=== PATIENT | female | born 2000 | race Caucasian/White ===

== ENCOUNTER 2021-11-07 20:03 | Emergency (ER) | payer OTHER ==
[~2021-11-07] VITALS: Ht 160 cm; Wt 79.4 kg
--- NOTE | 2021-11-07 20:39 | NUR ---
PATIENT AMBULATED TO BED 9
[2021-11-07 20:41] VITALS: BP 148/98
--- NOTE | 2021-11-07 20:45 | NUR ---
PT C/O BILATERAL ANKLE PRESSURE S/P FALL. PT TRIPPED OVER UNEVEN CONCRETE AND LANDED ON HER BUTTOCKS, PT STATES PAIN WITH FLEXION AND MOVEMENT OF ANKLE SIDE TO SIDE. DENIES ANY OTHER DISCOMFORT AT PRESENT TIME.
[2021-11-07] MEDS ORDERED: IBUP-2213 PO (20:59)
[2021-11-07 21:04] VITALS: BP 122/65
--- NOTE | 2021-11-07 21:05 | NUR ---
PER [facility] INSTRUCTIONS PTS ANKLED WERE WRAPPED WITH LASHANDA WRAP, PT TOLERATED THE PROCEDURE, BUT ASKED FOR AN ICE PACK THE RIGHT ANKLE HURT MORE THAN THE LEFT, +CMS BEFORE AND AFTER APPLICATION
--- NOTE | 2021-11-07 21:08 | NUR ---
Patient discharged with v/s stable. Written and verbal after care instructions given and explained. Patient verbalized understanding. Ambulatory with steady gait. All questions addressed prior to discharge. Advised to follow up with PMD.
== END 2021-11-07 21:06 | disposition home or self-care (01) ==
LOC: MED 20:03
DX: S93.401A Sprain of unspecified ligament of right ankle, initial encounter (principal); S93.402A Sprain of unspecified ligament of left ankle, initial encounter; W18.30XA Fall on same level, unspecified, initial encounter; Y93.89 Activity, other specified; Y92.89 Other specified places as the place of occurrence of the external cause; Y99.8 Other external cause status
CPT/HCPCS: 99282

== ENCOUNTER 2022-08-19 00:05 | Emergency (ER) | payer OTHER ==
[~2022-08-19] VITALS: Ht 160 cm; Wt 83.9 kg
[~2022-08-19 00:05] MED LIST: IBUP-2213 PO
[2022-08-19 00:28] VITALS: BP 132/95; PULSE 76; RESP 12; TEMP 98; O2SAT 100
--- NOTE | 2022-08-19 00:35 | NUR ---
PT TO LOBBY
[2022-08-19] MEDS ORDERED: IBUPROFEN 600 MG TAB PO ONE (01:55)
[2022-08-19] MEDS ORDERED: IBUP-2213 PO (01:57)
[2022-08-19 02:29] VITALS: BP 132/95; PULSE 76; RESP 12; TEMP 98; O2SAT 100
== END 2022-08-19 02:29 | disposition home or self-care (01) ==
LOC: MED 00:05
DX: S93.401A Sprain of unspecified ligament of right ankle, initial encounter (principal); E07.9 Disorder of thyroid, unspecified; Z79.899 Other long term (current) drug therapy; W19.XXXA Unspecified fall, initial encounter; Y93.89 Activity, other specified; Y92.89 Other specified places as the place of occurrence of the external cause; Y99.8 Other external cause status
CPT/HCPCS: 73610; 81025; 99283